=== PATIENT | female | born 1985 | race Two or more races ===

== ENCOUNTER 2021-07-22 20:22 | Emergency (ER) | payer OTHER, SELFPAY ==
[2021-07-22 20:24] VITALS: BP 102/59; PULSE 65; RESP 16; TEMP 37.1; O2SAT 100; BMI 25.7
--- NOTE | 2021-07-22 21:05 | ED.EXTPRO ---
HPI - Extremity Problem General Chief complaint: Extremity Injury, Upper Stated complaint: finger injury Time Seen by Provider: 07/22/21 21:05 Source: patient Mode of arrival: ambulatory Limitations: no limitations History of Present Illness HPI Narrative: Patient slammed her right hand to Car today complaining of pain in the tip of the right ring finger was seen at Urgent Care today x-ray showed a fracture noticed some hematoma under the nail sent patient here for subungual hematoma Related Data Previous Rx's Medication Instructions Recorded azithromycin 250 mg tablet See Rx Instructions PO .COMPLEX #6 07/17/21 tab Allergies Allergy/AdvReac Type Severity Reaction Status Date / Time No Known Allergies Allergy Verified 07/17/21 12:37 Review of Systems Review of Systems: Yes all other systems are reviewed and are negative [facility] Social History Social History Advance Directives: No Advance Directives Information Provided: No Patient : No Physical Exam Vital Signs: Vital Signs: Last Vital Signs Temp 98.7 F 07/22/21 20:24 Pulse 65 07/22/21 20:24 Resp 16 07/22/21 20:24 BP 102/59 L 07/22/21 20:24 Pulse Ox 100 07/22/21 20:24 BMI result Body Mass Index 25.7 Const: General: no acute distress Extrem: Hand/finger images: 1. Slight hematoma at the pulp of the finger, proximal 1/3 subungual hematoma patient has artificial nail MDM - Extremity (Nontraumatic) MDM Narrative Medical decision making narrative: Patient with small subungual hematoma complaining of increased pain small hole was drilled at the base of the nail and small amount of blood drained patient felt much better Procedures Nail Trephination Time out: Yes Location (finger): right Location (toes): fourth digit Sterile prep: betadine Method of drainage: nail cautery Procedure successful: Yes Patient tolerated procedure: No Complications Discharge Plan Discharge Clinical Impression: Subungual hematoma of finger of right hand Patient Disposition: Home, Self-Care Instructions: Subungual Hematoma (ED) Additional Instructions: Local care as advised you have very small fracture of tip of right ring finger which will heal of its own Wear the splint for support Prescriptions: No Action azithromycin 250 mg tablet See Rx Instructions PO .COMPLEX Qty: 6 0RF Rx Instructions: take 500 mg today (day 1), then 250 mg for 4 days (days 2-5) PO Interventions: ED Discharge Assessment Last Done: 07/22/21 21:44 Discharge Date/Time: 07/22/21 21:46
== END 2021-07-22 21:46 | disposition home or self-care (01) ==
PROVIDERS: Emergency Provider Internal Medicine; PCP Internal Medicine
DX: S60.141A Contusion of right ring finger with damage to nail, initial encounter (principal); M79.641 Pain in right hand; Y29.XXXA Contact with blunt object, undetermined intent, initial encounter; Y93.9 Activity, unspecified; Y92.9 Unspecified place or not applicable; Y99.9 Unspecified external cause status
CPT/HCPCS: 11730; 99283